=== PATIENT | male | born 1995 | race Caucasian/White ===

== ENCOUNTER 2020-12-13 20:57 | Emergency (ER) | payer SELFPAY ==
[2020-12-13] MEDS ORDERED: TOBRADEX EYE DRO5 ML OD (22:43)
== END 2020-12-13 22:54 | disposition home or self-care (01) ==
LOC: FER 20:57
DX: H10.31 Unspecified acute conjunctivitis, right eye (principal); J45.909 Unspecified asthma, uncomplicated; F17.210 Nicotine dependence, cigarettes, uncomplicated
CPT/HCPCS: 99282